=== PATIENT | female | born 1990 | race Caucasian/White ===

== ENCOUNTER 2017-01-02 09:45 | Emergency (ER) | payer OTHER ==
[2017-01-02 10:24] VITALS: BP 113/72
--- NOTE | 2017-01-02 10:38 | UC ---
Throat Pain/Nasal Jarvis HPI - HPI Summary HPI Summary: SORE THROAT X 1 DAY, NO FEVER, NO NASAL CONGESTION , NO COUGH - History of Current Complaint Chief Complaint: UCRespiratory Stated Complaint: SORE THROAT Time Seen by Provider: 01/02/17 10:34 Hx Obtained From: Patient Hx Last Menstrual Period: 12/09/16 Onset/Duration: Sudden Onset, Lasting Days - 1, Still Present Severity: Moderate Cough: None Associated Signs & Symptoms: Negative: Drooling, Sinus Discomfort, Nasal Discharge, Fever - Allergies/Home Medications Allergies/Adverse Reactions: Allergies Allergy/AdvReac Type Severity Reaction Status Date / Time Erythromycin Allergy See Comment Verified 01/02/17 10:18 Home Medications: Home Medications Ibuprofen TAB* [Advil TAB*] 600 mg PO Q6H PRN 01/02/17 [History Confirmed ] PMH/Surg Hx/FS Hx/Imm Hx Previously Healthy: Yes - Surgical History Surgical History: Yes Surgery Procedure, Year, and Place: . dental abscess - Family History Known Family History: Negative: Diabetes - Social History Alcohol Use: Occasionally Substance Use Type: None Smoking Status (MU): Never Smoked Tobacco Review of Systems Constitutional: Negative Skin: Negative Eyes: Negative ENT: Sore Throat Respiratory: Negative Cardiovascular: Negative All Other Systems Reviewed And Are Negative: Yes Physical Exam Triage Information Reviewed: Yes Appearance: Well-Appearing, No Pain Distress, Well-Nourished Vital Signs: Initial Vital Signs Temp 98 F 01/02/17 10:19 Pulse 96 01/02/17 10:19 Resp 16 01/02/17 10:19 BP 113/72 01/02/17 10:19 Pulse Ox 100 01/02/17 10:19 Vital Signs Reviewed: Yes Eye Exam: Normal Eyes: Positive: Conjunctiva Clear ENT: Positive: Normal ENT inspection, Hearing grossly normal, Pharyngeal erythema, TMs normal. Negative: Nasal congestion, Nasal drainage Neck: Positive: Supple, Nontender, No Lymphadenopathy Respiratory Exam: Normal Respiratory: Positive: Chest non-tender, Lungs clear, Normal breath sounds Cardiovascular Exam: Normal Cardiovascular: Positive: RRR, No Murmur, Pulses Normal Abdominal Exam: Normal Skin Exam: Normal Throat Pain/Nasal Course/Dx - Differential Dx/Diagnosis Provider Diagnoses: STREP PHARYNGITIS Discharge - Discharge Plan Condition: Stable Disposition: HOME Prescriptions: Amoxicillin (*) [Amoxicillin 875 MG (*)] 875 mg PO BID #20 tab Patient Education Materials: Strep Throat (ED) Referrals: Marilee Cullen MD [Primary Care Provider] - If Needed
== END 2017-01-02 10:41 | disposition home or self-care (01) ==
LOC: UCCORT 09:45
DX: Z88.1 Allergy status to other antibiotic agents (principal)
CPT/HCPCS: 87651; 99202; G0463

== ENCOUNTER 2017-06-10 08:49 | Emergency (ER) | payer OTHER ==
[2017-06-10 09:17] VITALS: BP 99/68
--- NOTE | 2017-06-10 10:25 | UC ---
Throat Pain/Nasal Jarvsi HPI - HPI Summary HPI Summary: TWO DAYS OF SORE THROAT, TONSILLAR SWELLING. FEVER. MUSCLE ACHES. - History of Current Complaint Chief Complaint: UCRespiratory Stated Complaint: SORE THROAT Time Seen by Provider: 06/10/17 09:33 Hx Obtained From: Patient Hx Last Menstrual Period: 06/08/17 Onset/Duration: Sudden Onset, Lasting Days, Still Present Severity: Mild Cough: None Associated Signs & Symptoms: Positive: Hoarseness, Fever - Epiglottits Risk Factors Epiglottis Risk Factors: Negative - Allergies/Home Medications Allergies/Adverse Reactions: Allergies Allergy/AdvReac Type Severity Reaction Status Date / Time Erythromycin Allergy See Comment Verified 06/10/17 09:12 PMH/Surg Hx/FS Hx/Imm Hx Previously Healthy: Yes - Surgical History Surgical History: Yes Surgery Procedure, Year, and Place: . dental abscess - Family History Known Family History: Negative: Diabetes - Social History Occupation: Student Lives: With Family Alcohol Use: Occasionally Substance Use Type: None Smoking Status (MU): Never Smoked Tobacco Review of Systems Constitutional: Fever Skin: Negative Eyes: Negative ENT: Sore Throat Respiratory: Negative Cardiovascular: Negative Gastrointestinal: Negative Genitourinary: Negative Motor: Negative Neurovascular: Negative Musculoskeletal: Negative Neurological: Negative Psychological: Negative All Other Systems Reviewed And Are Negative: Yes Physical Exam Triage Information Reviewed: Yes Appearance: Well-Appearing, No Pain Distress, Well-Nourished Vital Signs: Initial Vital Signs Temp 99.5 F 06/10/17 09:13 Pulse 98 06/10/17 09:13 Resp 16 06/10/17 09:13 BP 99/68 06/10/17 09:13 Pulse Ox 100 06/10/17 09:13 Vital Signs Reviewed: Yes Eye Exam: Normal ENT: Positive: Pharyngeal erythema, Tonsillar swelling, Tonsillar exudate Dental Exam: Normal Neck exam: Normal Neck: Positive: Supple, Nontender, No Lymphadenopathy Respiratory Exam: Normal Respiratory: Positive: Chest non-tender, Lungs clear, Normal breath sounds, No respiratory distress Cardiovascular Exam: Normal Cardiovascular: Positive: RRR, No Murmur, Pulses Normal Abdominal Exam: Normal Musculoskeletal Exam: Normal Musculoskeletal: Positive: Strength Intact Neurological Exam: Normal Psychological Exam: Normal Skin Exam: Normal Throat Pain/Nasal Course/Dx - Differential Dx/Diagnosis Differential Diagnosis/HQI/PQRI: Tonsillitis, URI Provider Diagnoses: STREP TONSILLITIS Discharge - Discharge Plan Condition: Stable Disposition: HOME Prescriptions: Amoxicillin/Clavulanate TAB* [Augmentin TAB 875*] 875 mg PO BID #20 tab Patient Education Materials: Strep Throat (ED) Referrals: Marilee Cullen MD [Primary Care Provider] -
== END 2017-06-10 10:22 | disposition home or self-care (01) ==
LOC: UCCORT 08:49
DX: J03.00 Acute streptococcal tonsillitis, unspecified (principal); Z88.1 Allergy status to other antibiotic agents
CPT/HCPCS: 87651; 99212; G0463

== ENCOUNTER 2019-11-16 07:36 | Emergency (ER) | payer BC, OTHER ==
--- OUTSIDE RECORDS SUMMARY | 2019-11-16 07:47 | XMS REPORT | Continuity of Care Document ---
:1990 External Reference #:[id number] Author Name Harriet Clark MD Address [address] [place] [id number] Problems Active Problems Provider Date Migraine without aura, not refractory Harriet Clark MD Onset: 09/19/2019 Social History Type Date Description Comments Sex Unknown ETOH Use Rarely consumes alcohol Tobacco Use Start: Unknown Patient has never smoked Smoking Status Reviewed: 09/19/19 Patient has never smoked Allergies, Adverse Reactions, Alerts Description No Known Drug Allergies Medications Active Medications SIG Qnty Indications Ordering Provider Date Sumatriptan Succinate 1 by mouth at 30tabs G43.009 Harriet Clark, 2018 onset of migraine 25mg Tablets - repeat in 2 hours if needed Ibuprofen 1 by mouth three Unknown 800mg Tablets times a day as needed Multivitamin Gummies 2 by mouth every Unknown Adult day Chewtabs Airborne 1 drop every day Unknown Lozenges History Medications Prednisone One tab by 7tabs J20.9 Harriet Clark MD 07/27/2019 - 10mg mouth daily for 08/03/2019 Tablets next 7 days Penicillin V 1 tab by mouth 20tabs J06.9 Harriet Clark MD 07/21/2019 - Potassium twice a day for 07/31/2019 500mg 10 days Tablets Immunizations CPT Code Status Date Vaccine Lot # [id number] Given 06/30/2019 Influenza Vac, Quadrivalent, Split, 0.5mL Dosage, Im Use Q2039 Given 07/15/2018 Flu Vaccine NOS Q2039 Given 08/02/2017 Flu Vaccine NOS Q2039 Given 08/02/2017 Flu Vaccine NOS Vital Signs Date Vital Result Comment 09/19/2019 2:33pm Weight 199.00 lb Heart Rate 84 /min BP Systolic 118 mmHg BP Diastolic 70 mmHg Respiratory Rate 18 /min Height 67 inches 5'7" 57 O2 % BldC Oximetry 98 % Ra BMI (Body Mass Index) 31.2 kg/m2 07/27/2019 11:03am Body Temperature 99.1 F Weight 196.00 lb Heart Rate 80 /min BP Systolic 112 mmHg BP Diastolic 62 mmHg Respiratory Rate 18 /min Height 67 inches 5'7" 57 O2 % BldC Oximetry 97 % BMI (Body Mass Index) 30.7 kg/m2 Results Test Acquired Date Facility Test Result H/L Range Note Laboratory test 07/27/2019 [facility] Monospot Positive Abnormal Negative finding Iron Panel 07/27/2019 [facility] Iron, Total 17 g/dL Low 50-170 Transferrin 299.0 mg/dL 203.0-362.0 Tibc (calc) 419 g/dL 261-478 % Iron Saturation 4.1 % Low 13.0-45.0 Laboratory test finding 07/27/2019 [facility] Folate >23.0 ng/ml 5.9-24.8 CBC with Auto Diff-[facility] 07/21/2019 [facility] WBC 6.4 K/uL 4.1-11.0 RBC 4.64 M/uL 4.00-5.40 Hemoglobin 10.5 gm/dL Low 12.0-16.0 Hematocrit 33.4 % Low 36.0-47.0 MCV 71.9 fL Low 80.0-97.0 MCH 22.7 pg Low 27.0-32.0 MCHC 31.5 g/dL Low 32.0-36.0 RDW 18.8 % High 11.5-14.5 PLT Count 296 K/ul 140-400 MPV 8.9 FL 7.1-10.7 Neutrophil 63.3 % 35.0-75.0 Lymphocyte 23.8 % 16.0-52.0 Monocyte 8.0 % 2.0-10.0 Eosinophil 3.8 % 0.0-5.0 Basophil 1.1 % 0.0-4.0 Abs Neutrophils 4.1 K/uL 2.1-8.0 Abs Lymphocytes 1.5 K/uL 0.8-5.5 Abs Monocytes 0.5 K/uL 0.1-1.0 Abs Eosinophils 0.2 K/uL 0.0-0.5 Abs Basophils 0.1 K/uL 0.0-0.3 Comprehensive Met Panel-[facility] 07/21/2019 [facility] Sodium 138 mmol/L 135- 146 1 Potassium 3.7 mmol/L 3.5-5.2 Chloride# 104 mmol/L 97-110 2 Carbon Dioxide 22 mmol/L Low 24-34 Calcium 8.8 mg/dL 8.5-10.5 3 Glucose 113 mg/dL High 70-105 BUN 11 mg/dL 6-26 Creatinine 0.8 mg/dL 0.5-1.4 Total Protein 6.4 g/dL 6.0-8.0 Albumin 3.9 g/dL 3.6-4.9 Globulin 2.5 g/dL 2.0-3.5 A/G Ratio 1.6 Ratio 1.0-2.2 Total Bilirubin 0.2 mg/dL 0.1-1.3 Alkaline Phosphatase 77 U/L 24-140 Alt 14 U/L 3-42 Ast 18 U/L 8-42 Anion Gap 12 mmol/L 5-15 4 Female Egfr 105 >60 5 Male Egfr 124 >60 6 Laboratory test finding 07/21/2019 [facility] CRP (C-Reactive) 0.20 mg/dL 0.00-0.75 Esr 23 mm/hr High 0-20 Vitamin D 25 Hydroxy 26 ng/mL Low 30-100 7 TSH 1.41 uIU/mL 0.35-4.94 Free T4 1.05 ng/dL 0.70-1.48 Vitamin B12 406 pg/mL 180-914 [facility] Screen With Reflex-[facility] 07/21/2019 [facility] Mattie Screen NEGATIVE Negative dsDNA IgG 0.50 IU/mL 0.00-9.00 8 HIV Combo By [facility] 07/21/2019 [facility] HIV NON REACTIVE Non Reactive Combo Throat PO Culture 07/21/2019 [facility] Th[facility]at PO Culture SEE NOTE 9 -RL 1 Updated reference range on new analyzer 2 Updated reference range on new analyzer 3 Updated reference range 02-22-2019 4 Updated Reference Range 5 Concerning GFR Guidelines for Americans: Normal function or mild renal disease, if clinically at risk: >/= 60 mL/min Moderately decreased: 30-59 Severely decreased: 15-29 Renal failure: <15 There is reduced accuracy above 60ml/min/1.73 m squared, but the numeric value may be clinically useful in the near 60 range 6 Concerning GFR Guidelines: Normal function or mild renal disease, if clinically at risk: >/= 60 mL/min Moderately decreased: 30-59 Severely decreased: 15-29 Renal failure: <15 There is reduced accuracy above 60ml/min/1.73 m squared, but the numeric value may be clinically useful in the near 60 range Glomerular Filtration Rate (GFR) is estimated based on the CKD-EPI equation, which assumes a steady state for creatinine as recommended by the National Kidney Disease Education Program in conjunction with the National Institutes of Health and the National Kidney Foundation. Clinical conditions in which it may be necessary to measure GFR by using clearance methods include extremes of age and body size, severe malnutrition or obesity, diseases of skeletal muscle, paraplegia or quadriplegia, vegetarian diet, rapidly changing kidney function, and calculation of the dose of potentially toxic drugs that are excreted by the kidneys. 7 Clinical Guidelines for recommended serum 25(OH)Vitamin D Deficient at less than 20 ng/mL Insufficient at 20 to <30 ng/mL Sufficient at 30-100 ng/mL Toxicity at greater than 100 ng/mL 8 Interpretation: <0.5 -9 IU/ml Negative 10-15 IU/ml Equivocal >15.0 IU/ml Positive 9 SPECIMEN DESCRIPTION THROAT SWAB CULTURE RESULTS NORMAL THROAT LIZETTE NEGATIVE FOR BETA HEMOLYTIC STREPTOCOCCI GROUPS A,C OR G. REPORT STATUS FINAL 07/23/2019 Unless otherwise specified, testing performed by [facility] [address] [place] [id number] Procedures Date Code Description Status 09/19/2019 55182 Admin Patient Focused Health Risk Assessment Instrument Completed 07/27/2019 80638 Measure Blood Oxygen Level Single Determination Completed 07/21/2019 28651 Measure Blood Oxygen Level Single Determination Completed Medical Devices Description No Information Available Encounters Type Date Location Provider Dx Diagnosis Office Visit 07/27/2019 Rosy Knight NP J20.9 Acute bronchitis, 10:45a unspecified R59.1 Generalized enlarged lymph nodes R53.83 Other fatigue H65.03 Acute serous otitis media, bilateral J06.9 Acute upper respiratory infection, unspecified E55.9 Vitamin D deficiency, unspecified R11.0 Nausea Office Visit 07/21/2019 9:30a Rosy Knight NP R59.1 Generalized enlarged lymph nodes R53.83 Other fatigue J06.9 Acute upper respiratory infection, unspecified H65.03 Acute serous otitis media, bilateral Assessments Date Code Description Provider 09/19/2019 E66.9 Obesity, unspecified Harriet Clark MD 09/19/2019 Z01.419 Encounter for gynecological examination Harriet Clark MD (general) (routine) without abnormal findings 09/19/2019 R59.1 Generalized enlarged lymph nodes Harriet Clark MD 09/19/2019 G43.009 Migraine without aura, not intractable, Harriet Clark MD without status migrainosus 09/19/2019 Z68.31 Body mass index (BMI) 31.0-31.9, adult Harriet Clark MD 07/27/2019 D64.9 Anemia, unspecified [facility] 07/27/2019 R59.1 Generalized enlarged lymph nodes Harriet Clark MD 07/27/2019 R59.1 Generalized enlarged lymph nodes [facility] 07/27/2019 J20.9 Acute bronchitis, unspecified Strauf, Rosy, OYSTERMAN 07/27/2019 R53.83 Other fatigue [facility] 07/27/2019 R59.1 Generalized enlarged lymph nodes Schedule, Laboratory 07/27/2019 R53.83 Other fatigue Harriet Clark MD 07/27/2019 R59.1 Generalized enlarged lymph nodes StraufJeronimoRosy, OYSTERMAN 07/27/2019 R53.83 Other fatigue Schedule, Laboratory 07/27/2019 R53.83 Other fatigue Strauf Rosy, OYSTERMAN 07/27/2019 H65.03 Acute serous otitis media, bilateral Strauf, Rosy, OYSTERMAN 07/27/2019 J06.9 Acute upper respiratory infection, StraJeronimo boothkie, OYSTERMAN unspecified 07/27/2019 E55.9 Vitamin D deficiency, unspecified Strauf, Rosy, OYSTERMAN 07/27/2019 R11.0 Nausea Strauf, Rosy, OYSTERMAN 07/21/2019 R59.1 Generalized enlarged lymph nodes [facility] 07/21/2019 R59.1 Generalized enlarged lymph nodes Strauf Rosy, OYSTERMAN 07/21/2019 R53.83 Other fatigue [facility] 07/21/2019 R59.1 Generalized enlarged lymph nodes Strauf, Rosy, OYSTERMAN 07/21/2019 E55.9 Vitamin D deficiency, unspecified [facility] 07/21/2019 R53.83 Other fatigue Strauf, Rosy, OYSTERMAN 07/21/2019 R53.83 Other fatigue Rosy Rascon, OYSTERMAN 07/21/2019 J06.9 Acute upper respiratory infection, Rosy Rascon, OYSTERMAN unspecified 07/21/2019 H65.03 Acute serous otitis media, bilateral Rosy Rascon, OYSTERMAN 07/21/2019 R59.1 Generalized enlarged lymph nodes Schedule, Laboratory 07/21/2019 R53.83 Other fatigue Schedule, Laboratory Plan of Treatment Future Appointment(s):09/23/2020 9:00 am - Harriet Clark MD at [facility] Functional Status Functional Condition Comment Date Status Negative for GLASSES Inactive Mental Status Description No Information Available Referrals Description No Information Available
[2019-11-16 07:53] VITALS: BP 140/95
--- NOTE | 2019-11-16 07:59 | UC ---
Complaint Female HPI - HPI Summary HPI Summary: 29 yo woman with intermittent dysuria x 2 weeks, with onset of fever about 6 hours ago. She has mild abdominal pain, no vomiting ot diarrhea, no recent urinary tract infections, no vaginal symptoms. Denies myalgias, headaches, cough or symptoms suggestive of flu. 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 LMP 11/10/19. - History Of Current Complaint Chief Complaint: UCGU Stated Complaint: FEVER URINARY Time Seen by Provider: 11/16/19 07:46 Hx Obtained From: Patient Hx Last Menstrual Period: 11/10/2019 Onset/Duration: Gradual Onset, Lasting Weeks - 2, Worse Since - past 2 days. Timing: Intermittent Severity Initially: Mild Severity Currently: Moderate Pain Intensity: 4 Character: Burning Aggravating Factor(s): Urination Associated Signs And Symptoms: Positive: Fever. Negative: Vaginal Bleeding/ Discharge, Nausea, Vomiting(# Of Episodes =), Genital Swelling - Allergies/Home Medications Allergies/Adverse Reactions: Allergies Allergy/AdvReac Type Severity Reaction Status Date / Time erythromycin base Allergy See Comment Verified 11/16/19 07:42 Home Medications: Home Medications Acetaminophen [Acetaminophen Extra Strength] 500 mg PO ONCE PRN 11/16/19 [ History Confirmed 11/16/19] Cranberry Conc/C/Bacill Coag [Azo Cranberry 250-30 mg] 1 tab PO ONCE PRN [History Confirmed 11/16/19] PMH/Surg Hx/FS Hx/Imm Hx Previously Healthy: Yes - Surgical History Surgical History: Yes Surgery Procedure, Year, and Place: . dental abscess - Family History Known Family History: Positive: Hypertension, Diabetes - Social History Occupation: Employed Full-time Lives: With Family Alcohol Use: Occasionally Substance Use Type: None Smoking Status (MU): Never Smoked Tobacco Review of Systems All Other Systems Reviewed And Are Negative: Yes Constitutional: Positive: Fever Skin: Positive: Negative Eyes: Positive: Negative ENT: Negative: Sore Throat, Sinus Congestion Respiratory: Negative: Shortness Of Breath, Cough Cardiovascular: Negative: Chest Pain Gastrointestinal: Negative: Vomiting, Diarrhea, Nausea Genitourinary: Positive: Dysuria, Frequency, Urgency Motor: Positive: Negative Neurovascular: Positive: Negative Musculoskeletal: Positive: Negative. Negative: Myalgia Neurological: Positive: Negative Psychological: Positive: Negative Is Patient Immunocompromised?: No Physical Exam Triage Information Reviewed: Yes Appearance: Well-Appearing - looks a little fatigued., No Pain Distress Vital Signs: Initial Vital Signs Temp 97.7 F 11/16/19 07:49 Pulse 90 11/16/19 07:49 Resp 18 11/16/19 07:49 BP 140/95 11/16/19 07:49 Pulse Ox 99 11/16/19 07:49 Eye Exam: Normal ENT: Positive: Pharynx normal, Tonsillar swelling - moderately enlarged (chronic ). Negative: Tonsillar exudate Neck: Positive: Supple, Nontender, No Lymphadenopathy Respiratory: Positive: Lungs clear, Normal breath sounds Cardiovascular: Positive: RRR, No Murmur Abdomen Description: Positive: No Organomegaly, Soft, CVA Tenderness (L), Other : - mild suprapubic tenderness. Musculoskeletal Exam: Normal Neurological Exam: Normal Neurological: Positive: Alert, Muscle Tone Normal Psychological Exam: Normal Skin Exam: Normal Diagnostics - Laboratory Lab Results: UA with 3+ blood (just finishing menses), and 1+ protein and bili. Complaint Female Dx - Course Course Of Treatment: Discussed relatively clean UA but symptoms most consistent with UTI. Will begin bactrim pending culture report, and observe for other sources of fever. No symptoms currently suggestive of flu. - Differential Dx/Diagnosis Differential Diagnosis/HQI/PQRI: Urinary Tract Infection, Other - influenza, viral syndrome. Provider Diagnosis: Dysuria, Fever Discharge ED - Sign-Out/Discharge Documenting (check all that apply): Patient Departure All imaging exams completed and their final reports reviewed: No Studies - Discharge Plan Condition: Stable Disposition: HOME Prescriptions: Sulfamethox/Trimethoprim DS* [Bactrim DS 800/160 TAB*] 1 tab PO BID #14 tab Patient Education Materials: Dysuria (ED) Forms: *Work Release Referrals: Harriet Clark MD [Primary Care Provider] - Additional Instructions: Your blood pressure is elevated today to 140/95. Begin bactrim for treatment of possible urinary tract infection pending culture. Urine culture will be reported in 2 to 3 days and we will call if a change of treatment is indicated by the result. Continue use of ibuprofen and acetaminophen for fever. Follow up if you develop new symptoms such as cough, shortness of breath, headache of vomiting. - Billing Disposition and Condition Condition: STABLE Disposition: Home
[2019-11-16] MEDS ORDERED: Sulfamethox/Trimethoprim DS 800/160* TAB PO ONE (08:22)
== END 2019-11-16 08:37 | disposition home or self-care (01) ==
LOC: UCCORT 07:36
DX: R30.0 Dysuria (principal); R50.9 Fever, unspecified; R35.0 Frequency of micturition; R39.15 Urgency of urination; Z88.1 Allergy status to other antibiotic agents
CPT/HCPCS: 81003; 87086; 99212; A9270-GY; G0463